=== PATIENT | male | born 1970 | race Two or more races ===

== ENCOUNTER 2024-04-08 07:21 | Emergency (ER) | payer OTHER ==
[~2024-04-08] VITALS: Ht 185.4 cm; Wt 119.3 kg
[2024-04-08 07:40] VITALS: BP 126/78; O2SAT 98
[2024-04-08] MEDS ORDERED: BIKTARVY 30-121 EACH PO (07:41)
[2024-04-08] MEDS ORDERED: TRAMADOL HCL 50 MG TABLET PO ONE (08:30)
[2024-04-08] MEDS ORDERED: TAMSULOSIN HCL 0.4 MG CAP PO ONE (08:30)
[2024-04-08 09:46] LABS: PH,URINE 5.5 (5.0-8.0); URINE APPEARANCE Clear; URINE BILIRRUBIN Negative (NEGATIVE); URINE BLOOD Negative; URINE COLOR Yellow; URINE GLUCOSE Negative (NEGATIVE); URINE KETONE Negative (NEGATIVE); URINE LEUKOCYTE Negative; URINE NITRATE Negative; URINE PROTEIN Trace (NEGATIVE); URINE UROBILINOGEN 0.2 E.U./dl
[2024-04-08 09:51] LABS: URINE BACTERIA 6.2 uL (0.0-1933); URINE EPITHELIAL CELLS 3.7 uL (0.0-38.8); URINE RBC 5.3 uL (0.0-20.8); URINE WBC 3.2 uL (0.0-23.2)
[2024-04-08] MEDS ORDERED: NORFLEX100MG PO (10:08)
== END 2024-04-08 11:34 | disposition home or self-care (01) ==
LOC: ER 07:23
PROVIDERS: General Practice
DX: M54.9 Dorsalgia, unspecified (principal); Z21 Asymptomatic human immunodeficiency virus [HIV] infection status

== ENCOUNTER 2024-05-07 10:57 | Inpatient (IN) | payer OTHER ==
[~2024-05-07] VITALS: Ht 185.4 cm; Wt 131.1 kg
[~2024-05-07 10:57] MED LIST: BIKTARVY 30-121 EACH PO; NORFLEX100MG PO
--- NOTE | 2024-05-07 11:28 | NUR ---
SE RECIBE PTE ALERTA Y ORIENTADO X3 LE MISMO REFIERE QUE PRESENTO FALTA DE AIRE EN LA MANANA DE HOY. SE OBSERVAN AMBAS PIENRAS CON EDEMAS Y ENROJECIDAS.
[2024-05-07 12:19] LABS: MEAN CELL VOLUME 81.7 fL (80.0-100.00); MEAN CORPUSCULAR HGB CONC 34.2 g/dl (32.0-36.0); RED BLOOD COUNT 2.59 M/uL (4.00-6.00); RED CELL DISTRIBUTION WIDTH 18.7 % (11.5-14.5)
--- NOTE | 2024-05-07 12:20 | NUR ---
SE LE ORIENTA A PACIENTE SOBRE LA ORDEN MEDICA, REFIERE ENTENDER LAS MISMAS. SE CANALIZA Y SE LE COLOCA H/L, SE LE GURVINDER LAS MUETRAS Y SE LE REALIZA PLACA CHARMAINE LA ORDEN MEDICA.
[2024-05-07 12:21] LABS: HEMATOCRIT 21.2 % (39.0-48.0); HEMOGLOBIN 7.2 g/dL (13-16.00); MEAN CORPUSCULAR HEMOGLOBIN 27.7 pg (27.00-32.0); PLATELET COUNT 98 K/uL (150-450)
[2024-05-07 13:18] LABS: CALCIUM 8.5 mg/dL (8.5-10.1); GFR 3.41; POTASSIUM 5.22 mEq/L (3.5-5.1)
[2024-05-07 13:21] LABS: CREATININE SERUM 15.2 mg/dL (0.70-1.30)
[2024-05-07 14:08] LABS: ABG PH 7.385 (7.35-7.45); ABG PO2 87.9 mmHg (80-100); ABG pCO2 22.4 mmHg (35-45); BASE EXCESS -9.6 mmol/l; BICARBONATE 13.1 mmol/l (23-25); SaO2 96.2 %; Tco2 13.8 mmol/l
[2024-05-07 14:09] LABS: allen test SATISFACTORY; o2 21 %; puncture site RADIAL RIGHT
--- NOTE | 2024-05-07 14:11 | NUR ---
SE COLOCA MICHAEL BAJO MEDIDAS ASEPTICAS Y ESTERILES. PTE NO PRESENTA EGRESO DE ORINA AL MOMENTO. SE NOTIFICA A .
--- NOTE | 2024-05-07 15:20 | NUR ---
SE RECIBE PTE ALERTA Y ORIENTADO X3. EN DESCANZO EN CAMA BAJA CON BARANDAS ELEVADAS Y BUEN PATRON RESPIRATORIO. PTE CONECTADO A MONITOR CARDIACO Y OXIMETRIA DE PULSO CONTINUA. EXTREMIDADES SUPERIORES LIBRES DE EDEMA Y ERITEMA ABDOMEN BLANDO AL TACTO CON PERISTALSIS PRESENTE. SONDA URINARIA MICHAEL SIN PRESENCIA DE OUTPUT. EXTREMIDADES INFERIORES CON PRESENCIA DE EDEMA. AL MOMENTO EN QUE SE RECIBE PTE EL MISMO SE GURVINDER SV Y SE DOCUMENTAN
[2024-05-07] MEDS ORDERED: SODIUM POLYSTYRENE SULFONATE 30G/8 TSP PO STA (15:41)
[2024-05-07] MEDS ORDERED: IRON FUM,PS/FOLIC/BCOMP,C NO.9 1 CAP CAPSULE PO SCH (17:23)
[2024-05-07 17:57] LABS: INR 1.15; PARTIAL THROMBOPLASTIN TIME 29.9 SECONDS (22.0-34.0); PROTHROMBIN TIME 12.4 SECONDS (9.0-11.5)
[2024-05-07 18:09] LABS: ALBUMIN 1.9 gm/dL (3.4-5.0); BILIRUBIN TOTAL 0.52 mg/dL (0.3-1.2); GFR 3.31; GLOBULINA 7.5 G/DL (2.4-3.5); POTASSIUM 5.6 mEq/L (3.5-5.1); TOTAL PROTEIN 9.4 gm/dL (6.4-8.2)
[2024-05-07 18:50] LABS: CREATININE SERUM 15.6 mg/dL (0.70-1.30)
[2024-05-07 18:52] LABS: URIC ACID 14.7 mg/dL (3.5-8.5)
[2024-05-07] MEDS ORDERED: AMINO ACIDS 1 EACH TABLET PO SCH (19:05)
[2024-05-07] MEDS ORDERED: SODIUM POLYSTYRENE SULFONATE 15 G/4 TSP TSP PO SCH (19:06)
[2024-05-07] MEDS ORDERED: 0.9 % SODIUM CHLORIDE 1,000 ML IV SCH (19:15)
[2024-05-08] VITALS: BP 151/91; O2SAT 96
[2024-05-08 05:00] VITALS: BP 157/74; O2SAT 98
[2024-05-08 07:00] VITALS: BP 150/69; O2SAT 98
[2024-05-08] MEDS ORDERED: PANTOPRAZOLE SODIUM 40 MG/VIAL VIAL IV SCH (09:00)
[2024-05-08 15:00] VITALS: BP 154/70; O2SAT 95
[2024-05-08 18:18] LABS: HEMATOCRIT 30.3 % (39.0-48.0); HEMOGLOBIN 10.6 g/dL (13-16.00); MEAN CELL VOLUME 82.3 fL (80.0-100.00); MEAN CORPUSCULAR HEMOGLOBIN 28.9 pg (27.00-32.0); MEAN CORPUSCULAR HGB CONC 35.1 g/dl (32.0-36.0); RED BLOOD COUNT 3.68 M/uL (4.00-6.00); RED CELL DISTRIBUTION WIDTH 18.1 % (11.5-14.5)
[2024-05-08 18:23] LABS: PLATELET COUNT 101 K/uL (150-450)
[2024-05-08 18:36] LABS: ALBUMIN 1.9 gm/dL (3.4-5.0); BILIRUBIN TOTAL 0.6 mg/dL (0.3-1.2); CALCIUM 8.1 mg/dL (8.5-10.1); GLOBULINA 8.4 G/DL (2.4-3.5); MAGNESIUM 2.2 mg/dL (1.8-2.4); PHOSPHOROUS 5.5 mg/dL (2.5-4.9); POTASSIUM 4.13 mEq/L (3.5-5.1)
[2024-05-08 18:42] LABS: GFR 4.23
[2024-05-08 18:43] LABS: TOTAL PROTEIN 10.3 gm/dL (6.4-8.2)
[2024-05-08 18:44] LABS: CREATININE SERUM 12.6 mg/dL (0.70-1.30)
[2024-05-08 19:21] VITALS: BP 167/78; O2SAT 97
[2024-05-08 23:35] VITALS: BP 140/87; O2SAT 97
[2024-05-09 00:51] LABS: URINE APPEARANCE Turbid; URINE BILIRRUBIN Moderate (NEGATIVE); URINE BLOOD Moderate; URINE COLOR Red; URINE GLUCOSE Negative (NEGATIVE); URINE KETONE Negative (NEGATIVE); URINE LEUKOCYTE Large; URINE NITRATE Positive; URINE UROBILINOGEN 0.2 E.U./dl
[2024-05-09 00:52] LABS: URINE EPITHELIAL CELLS 56.7 uL (0.0-38.8); URINE RBC 251.9 uL (0.0-20.8); URINE WBC 295.8 uL (0.0-23.2)
[2024-05-09 01:36] LABS: URINE BACTERIA > 9821.5 uL (0.0-1933); URINE CAST > 21.83 uL (0.0-1.40); URINE PROTEIN 100 (NEGATIVE)
[2024-05-09 06:34] LABS: ALBUMIN 1.9 gm/dL (3.4-5.0); BILIRUBIN TOTAL 0.52 mg/dL (0.3-1.2); CALCIUM 8.3 mg/dL (8.5-10.1); GFR 3.72; GLOBULINA 8.1 G/DL (2.4-3.5); MAGNESIUM 2.2 mg/dL (1.8-2.4); PHOSPHOROUS 6.7 mg/dL (2.5-4.9); POTASSIUM 4.94 mEq/L (3.5-5.1)
[2024-05-09 06:38] LABS: CREATININE SERUM 14.1 mg/dL (0.70-1.30)
[2024-05-09 07:02] LABS: HEMATOCRIT 29.5 % (39.0-48.0); HEMOGLOBIN 10.1 g/dL (13-16.00); MEAN CELL VOLUME 82.8 fL (80.0-100.00); MEAN CORPUSCULAR HEMOGLOBIN 28.4 pg (27.00-32.0); MEAN CORPUSCULAR HGB CONC 34.3 g/dl (32.0-36.0); RED BLOOD COUNT 3.56 M/uL (4.00-6.00); RED CELL DISTRIBUTION WIDTH 17.6 % (11.5-14.5)
[2024-05-09] MEDS ORDERED: CITRIC ACID/SODIUM CITRATE 30 ML BLIST.PACK PO SCH (09:00)
[2024-05-09] MEDS ORDERED: BENZONATATE 100 MG CAPSULE PO SCH (09:00)
[2024-05-09 09:05] LABS: PLATELET COUNT 93 K/uL (150-450)
[2024-05-09 10:39] VITALS: BP 148/73; O2SAT 98
[2024-05-09 19:00] VITALS: BP 150/90
[2024-05-09 21:51] VITALS: O2SAT 94
[2024-05-10] VITALS (8 sets, daily range): BP systolic 122–170; BP diastolic 83–85; O2SAT 90–118
[2024-05-10 07:36] LABS: CALCIUM 7.8 mg/dL (8.5-10.1); GFR 3.21; MAGNESIUM 2.1 mg/dL (1.8-2.4); POTASSIUM 4.46 mEq/L (3.5-5.1)
[2024-05-10] MEDS ORDERED: CLONAZEPAM 0.5 MG TABLET PO SCH (11:32)
[2024-05-11] VITALS (9 sets, daily range): BP systolic 142–171; BP diastolic 76–96; O2SAT 88–98
[2024-05-11 06:17] LABS: HEMATOCRIT 27.8 % (39.0-48.0); HEMOGLOBIN 9.4 g/dL (13-16.00); MEAN CELL VOLUME 83.6 fL (80.0-100.00); MEAN CORPUSCULAR HEMOGLOBIN 28.2 pg (27.00-32.0); MEAN CORPUSCULAR HGB CONC 33.7 g/dl (32.0-36.0); RED BLOOD COUNT 3.33 M/uL (4.00-6.00); RED CELL DISTRIBUTION WIDTH 18.1 % (11.5-14.5)
[2024-05-11 06:40] LABS: CALCIUM 7.6 mg/dL (8.5-10.1); GFR 2.8; MAGNESIUM 2.3 mg/dL (1.8-2.4); PHOSPHOROUS 7.7 mg/dL (2.5-4.9); POTASSIUM 4.85 mEq/L (3.5-5.1)
[2024-05-11 07:37] LABS: PLATELET COUNT 81 K/uL (150-450)
[2024-05-11] MEDS ORDERED: Calcium Acetate 667 MG CAP PO SCH (09:56)
[2024-05-12] VITALS (7 sets, daily range): BP systolic 147–162; BP diastolic 83–94; O2SAT 94–99
[2024-05-12] MEDS ORDERED: TUBERCULIN,PURIF.PROT.DERIV. 10 SKIN.TEST SKIN.TEST ID ONE (10:30)
[2024-05-12] MEDS ORDERED: HEPARIN SODIUM,PORCINE 5,000 UNITS/ML VIAL IV ONE (19:00)
[2024-05-12] MEDS ORDERED: METOPROLOL SUCCINATE 25 MG TAB.SR.24H PO SCH (21:19)
[2024-05-13 02:55] VITALS: O2SAT 96
[2024-05-13 03:02] VITALS: BP 154/94; O2SAT 98
[2024-05-13 06:41] VITALS: O2SAT 95
[2024-05-13 08:40] VITALS: BP 158/93; O2SAT 97
[2024-05-13] MEDS ORDERED: ALBUMIN HUMAN 100 ML VIAL IV SCH (09:00)
[2024-05-13 17:00] VITALS: O2SAT 95
[2024-05-13 21:17] VITALS: O2SAT 97
[2024-05-13 23:19] LABS: MEAN CELL VOLUME 81.5 fL (80.0-100.00); MEAN CORPUSCULAR HGB CONC 33.8 g/dl (32.0-36.0); RED BLOOD COUNT 2.78 M/uL (4.00-6.00); RED CELL DISTRIBUTION WIDTH 17.9 % (11.5-14.5)
[2024-05-13 23:22] LABS: MEAN CORPUSCULAR HEMOGLOBIN 27.6 pg (27.00-32.0)
[2024-05-13 23:23] LABS: HEMATOCRIT 22.6 % (39.0-48.0); PLATELET COUNT 103 K/uL (150-450)
[2024-05-13 23:41] LABS: HEMOGLOBIN 7.7 g/dL (13-16.00)
[2024-05-14 00:04] LABS: ALBUMIN 1.9 gm/dL (3.4-5.0); BILIRUBIN TOTAL 0.47 mg/dL (0.3-1.2); CALCIUM 8.3 mg/dL (8.5-10.1); GFR 3.36; GLOBULINA 7.2 G/DL (2.4-3.5); MAGNESIUM 2.2 mg/dL (1.8-2.4); PHOSPHOROUS 5.6 mg/dL (2.5-4.9); POTASSIUM 4.55 mEq/L (3.5-5.1); TOTAL PROTEIN 9.1 gm/dL (6.4-8.2)
[2024-05-14 00:07] LABS: CREATININE SERUM 15.4 mg/dL (0.70-1.30)
[2024-05-14 00:26] VITALS: O2SAT 97
[2024-05-14 01:08] VITALS: BP 149/85; O2SAT 100
[2024-05-14 03:00] VITALS: O2SAT 90
[2024-05-14 08:52] VITALS: BP 110/62; O2SAT 97
[2024-05-14 10:36] LABS: ALBUMIN 1.8 gm/dL (3.4-5.0); CALCIUM 8.8 mg/dL (8.5-10.1); GFR 2.94; PHOSPHOROUS 6.8 mg/dL (2.5-4.9); POTASSIUM 5.4 mEq/L (3.5-5.1)
[2024-05-14 10:51] LABS: CREATININE SERUM 17.3 mg/dL (0.70-1.30)
[2024-05-14] MEDS ORDERED: SODIUM POLYSTYRENE SULFONATE 30G/8 TSP PO NR (12:45)
[2024-05-14] MEDS ORDERED: AMINO ACIDS 1 EACH TABLET PO SCH (13:00)
[2024-05-14] MEDS ORDERED: HEPARIN SODIUM,PORCINE 5,000 UNITS/ML VIAL IV NR (16:00)
[2024-05-14 16:20] VITALS: BP 122/75; O2SAT 98
[2024-05-14 21:55] VITALS: O2SAT 93
[2024-05-15] VITALS (8 sets, daily range): BP systolic 125–144; BP diastolic 75–84; O2SAT 92–97
[2024-05-15 00:20] LABS: HEMATOCRIT 26.2 % (39.0-48.0); MEAN CELL VOLUME 82.3 fL (80.0-100.00); MEAN CORPUSCULAR HGB CONC 34.9 g/dl (32.0-36.0); RED BLOOD COUNT 3.18 M/uL (4.00-6.00); RED CELL DISTRIBUTION WIDTH 17.2 % (11.5-14.5)
[2024-05-15 00:51] LABS: HEMOGLOBIN 9.1 g/dL (13-16.00); MEAN CORPUSCULAR HEMOGLOBIN 28.6 pg (27.00-32.0); PLATELET COUNT 109 K/uL (150-450)
[2024-05-15 07:06] LABS: HEMATOCRIT 26.3 % (39.0-48.0); HEMOGLOBIN 9.1 g/dL (13-16.00); MEAN CELL VOLUME 83.1 fL (80.0-100.00); MEAN CORPUSCULAR HEMOGLOBIN 28.8 pg (27.00-32.0); MEAN CORPUSCULAR HGB CONC 34.7 g/dl (32.0-36.0); RED BLOOD COUNT 3.17 M/uL (4.00-6.00); RED CELL DISTRIBUTION WIDTH 17.1 % (11.5-14.5)
[2024-05-15 07:55] LABS: BILIRUBIN TOTAL 0.51 mg/dL (0.3-1.2); CALCIUM 8.5 mg/dL (8.5-10.1); GFR 4.05; GLOBULINA 7.2 G/DL (2.4-3.5); POTASSIUM 4.5 mEq/L (3.5-5.1); TOTAL PROTEIN 9.2 gm/dL (6.4-8.2)
[2024-05-15 07:58] LABS: PLATELET COUNT 114 K/uL (150-450)
[2024-05-15 08:15] LABS: CREATININE SERUM 13.1 mg/dL (0.70-1.30)
[2024-05-15 10:06] LABS: IMMUNOGLOBULIN A 73 mg/dL (90-386); IMMUNOGLOBULIN G 5845 mg/dL (603-1613)
[2024-05-15 10:06] LABS: a:g ratio 0.3 (0.7-1.7); alpha 1 g 0.4 g/dL (0.0-0.4); alpha 2 0.7 g/dL (0.4-1.0); gamma g 4.9 g/dL (0.4-1.8); prot total 9.2 g/dL (6.0-8.5)
[2024-05-15 12:38] LABS: URIC ACID 8.6 mg/dL (3.5-8.5)
[2024-05-15] MEDS ORDERED: MEROPENEM 500 MG/VIAL VIAL IV SCH (12:45)
[2024-05-15] MEDS ORDERED: LACTOBACILLUS ACIDOPHILUS 1 CAP CAP PO SCH (17:00)
[2024-05-16 06:04] VITALS: O2SAT 98
[2024-05-16] MEDS ORDERED: ALBUMIN HUMAN 100 ML VIAL IV SCH (09:00)
[2024-05-16 09:09] VITALS: O2SAT 90
[2024-05-16 11:36] VITALS: BP 138/84; O2SAT 97
[2024-05-16 12:24] VITALS: O2SAT 90
[2024-05-16 16:46] VITALS: BP 146/86; O2SAT 97
[2024-05-16 21:00] VITALS: O2SAT 96
[2024-05-17] VITALS (8 sets, daily range): BP systolic 137–156; BP diastolic 71–90; O2SAT 89–100
[2024-05-17 07:48] LABS: BILIRUBIN TOTAL 0.63 mg/dL (0.3-1.2); CALCIUM 8.5 mg/dL (8.5-10.1); GFR 3.94; GLOBULINA 7.8 G/DL (2.4-3.5); MAGNESIUM 2.3 mg/dL (1.8-2.4); PHOSPHOROUS 4.2 mg/dL (2.5-4.9); POTASSIUM 4.36 mEq/L (3.5-5.1); TOTAL PROTEIN 9.8 gm/dL (6.4-8.2)
[2024-05-17 08:00] LABS: CREATININE SERUM 13.4 mg/dL (0.70-1.30)
[2024-05-17 08:18] LABS: HEMATOCRIT 27.4 % (39.0-48.0); HEMOGLOBIN 9.3 g/dL (13-16.00); MEAN CELL VOLUME 83.9 fL (80.0-100.00); MEAN CORPUSCULAR HEMOGLOBIN 28.4 pg (27.00-32.0); MEAN CORPUSCULAR HGB CONC 33.9 g/dl (32.0-36.0); PLATELET COUNT 131 K/uL (150-450); RED BLOOD COUNT 3.26 M/uL (4.00-6.00); RED CELL DISTRIBUTION WIDTH 17.2 % (11.5-14.5)
[2024-05-17] MEDS ORDERED: PANTOPRAZOLE SODIUM 40 MG TABLET.DR PO NR (12:00)
[2024-05-17] MEDS ORDERED: FLUCONAZOLE IN NACL,ISO-OSM 2 MG/ML ML IV SCH (17:00)
[2024-05-17] MEDS ORDERED: GUAIFENESIN 100 MG/5 ML PO PRN (20:45)
[2024-05-17] MEDS ORDERED: CODEINE PHOSPHATE/GUAIFENESIN 5 ML ML PO PRN (20:45)
[2024-05-17] MEDS ORDERED: ONDANSETRON HCL 2 MG/ML VIAL IV PRN (20:45)
[2024-05-18] VITALS (10 sets, daily range): BP systolic 120–136; BP diastolic 7–80; O2SAT 90–99
[2024-05-18] MEDS ORDERED: FLUCONAZOLE IN NACL,ISO-OSM 50 ML IV SCH (09:00)
[2024-05-18] MEDS ORDERED: EPOETIN ALFA-EPBX 10,000 UNIT/ML VIAL (Retacrit) SUBCUTANEO SCH (09:00)
[2024-05-18] MEDS ORDERED: ALLOPURINOL 100 MG TABLET PO SCH (09:00)
[2024-05-18] MEDS ORDERED: PANTOPRAZOLE SODIUM 40 MG TABLET.DR PO SCH (09:00)
[2024-05-18] MEDS ORDERED: ACETAMINOPHEN 500 MG GEL..CAP PO PRN (23:30)
[2024-05-19] VITALS (8 sets, daily range): BP systolic 80–130; BP diastolic 70–79; O2SAT 89–98
[2024-05-19 06:19] LABS: MEAN CELL VOLUME 83.5 fL (80.0-100.00); MEAN CORPUSCULAR HGB CONC 33.9 g/dl (32.0-36.0); RED BLOOD COUNT 3.11 M/uL (4.00-6.00); RED CELL DISTRIBUTION WIDTH 17.5 % (11.5-14.5)
[2024-05-19 06:55] LABS: ALBUMIN 1.8 gm/dL (3.4-5.0); BILIRUBIN TOTAL 0.59 mg/dL (0.3-1.2); CALCIUM 8.3 mg/dL (8.5-10.1); GLOBULINA 7.5 G/DL (2.4-3.5); MAGNESIUM 2.4 mg/dL (1.8-2.4); PHOSPHOROUS 6.3 mg/dL (2.5-4.9); TOTAL PROTEIN 9.3 gm/dL (6.4-8.2)
[2024-05-19 07:07] LABS: MEAN CORPUSCULAR HEMOGLOBIN 28.2 pg (27.00-32.0)
[2024-05-19 07:08] LABS: HEMOGLOBIN 8.8 g/dL (13-16.00); PLATELET COUNT 115 K/uL (150-450)
[2024-05-19 07:14] LABS: GFR 2.63
[2024-05-19 07:16] LABS: POTASSIUM 6.09 mEq/L (3.5-5.1)
[2024-05-19] MEDS ORDERED: SODIUM POLYSTYRENE SULFONATE 30G/8 TSP PO STA (08:00)
[2024-05-19] MEDS ORDERED: CALCIUM GLUCONATE 100 MG/ML VIAL IV STA (08:00)
[2024-05-19] MEDS ORDERED: DEXTROSE 50 % IN WATER 0.5 G/ML DISP.SYRIN IV ONE (08:15)
[2024-05-19] MEDS ORDERED: INSULIN REGULAR, HUMAN 1,000 UNIT/10 ML UNITS IV ONE (08:15)
[2024-05-19] MEDS ORDERED: levoFLOXacin IN DEXTROSE 5 % 5 MG/ML PIGGYBAG IV NR (12:45)
[2024-05-19] MEDS ORDERED: SODIUM POLYSTYRENE SULFONATE 30G/8 TSP PO SCH (13:00)
[2024-05-19] MEDS ORDERED: HEPARIN SODIUM,PORCINE 5,000 UNITS/ML VIAL IV ONE (14:00)
[2024-05-19 15:42] LABS: CALCIUM 8.8 mg/dL (8.5-10.1); GFR 5.34
[2024-05-19 15:44] LABS: CREATININE SERUM 10.3 mg/dL (0.70-1.30)
[2024-05-19] MEDS ORDERED: SODIUM POLYSTYRENE SULFONATE 15 G/4 TSP TSP PO SCH (17:00)
[2024-05-19] MEDS ORDERED: BUPIVACAINE HCL/PF 0.25% 30ML VIAL InF ONE (21:45)
[2024-05-20] VITALS (8 sets, daily range): BP systolic 101–107; BP diastolic 60–69; O2SAT 90–98
[2024-05-20 12:06] LABS: HEMATOCRIT 28.5 % (39.0-48.0); HEMOGLOBIN 9.6 g/dL (13-16.00); MEAN CELL VOLUME 83.6 fL (80.0-100.00); MEAN CORPUSCULAR HEMOGLOBIN 28.1 pg (27.00-32.0); MEAN CORPUSCULAR HGB CONC 33.6 g/dl (32.0-36.0); PLATELET COUNT 151 K/uL (150-450); RED BLOOD COUNT 3.41 M/uL (4.00-6.00); RED CELL DISTRIBUTION WIDTH 16.6 % (11.5-14.5)
[2024-05-20 12:36] LABS: CALCIUM 8.8 mg/dL (8.5-10.1); GFR 9.54; POTASSIUM 4.38 mEq/L (3.5-5.1)
[2024-05-20 12:43] LABS: CREATININE SERUM 6.23 mg/dL (0.70-1.30)
[2024-05-20] MEDS ORDERED: HEPARIN SODIUM,PORCINE 5,000 UNITS/ML VIAL IV NR (17:30)
[2024-05-20 20:31] LABS: HEMATOCRIT 30.9 % (39.0-48.0); HEMOGLOBIN 10.4 g/dL (13-16.00); MEAN CELL VOLUME 83.4 fL (80.0-100.00); MEAN CORPUSCULAR HEMOGLOBIN 28.1 pg (27.00-32.0); MEAN CORPUSCULAR HGB CONC 33.7 g/dl (32.0-36.0); PLATELET COUNT 146 K/uL (150-450); RED BLOOD COUNT 3.71 M/uL (4.00-6.00); RED CELL DISTRIBUTION WIDTH 16.6 % (11.5-14.5)
[2024-05-21] VITALS (7 sets, daily range): BP systolic 100–140; BP diastolic 58–80; O2SAT 90–97
[2024-05-21 06:38] LABS: HEMATOCRIT 28.5 % (39.0-48.0); MEAN CELL VOLUME 82.1 fL (80.0-100.00); MEAN CORPUSCULAR HEMOGLOBIN 28.7 pg (27.00-32.0); PLATELET COUNT 132 K/uL (150-450); RED BLOOD COUNT 3.47 M/uL (4.00-6.00); RED CELL DISTRIBUTION WIDTH 16.7 % (11.5-14.5)
[2024-05-21 06:55] LABS: ALBUMIN 1.9 gm/dL (3.4-5.0); BILIRUBIN TOTAL 0.59 mg/dL (0.3-1.2); CALCIUM 8.3 mg/dL (8.5-10.1); CREATININE SERUM 3.42 mg/dL (0.70-1.30); GFR 19.06; MAGNESIUM 2.3 mg/dL (1.8-2.4); PHOSPHOROUS 3.4 mg/dL (2.5-4.9); POTASSIUM 3.88 mEq/L (3.5-5.1); TOTAL PROTEIN 9.9 gm/dL (6.4-8.2)
[2024-05-21] MEDS ORDERED: ACETAMINOPHEN 325 MG TABLET PO PRN (08:30)
[2024-05-21] MEDS ORDERED: levoFLOXacin IN DEXTROSE 5 % 500MG/100ML PIGGYBAG IV SCH (09:00)
[2024-05-21 14:47] LABS: COL EPI 170 SECONDS (82-175)
[2024-05-21 14:48] LABS: PLT IN CITRATE 110 K/uL (150-450)
[2024-05-21 19:10] LABS: PLEURAL FLUID APPEARANCE TURBID; PLEURAL FLUID COLOR RED-BLOODY
[2024-05-21 20:06] LABS: TP PLEURAL FLUID 7.9 g/dl
[2024-05-21 20:50] LABS: MONONUCLEAR 81 %; POLYMORPHONUCLEAR 19 %
[2024-05-22] VITALS (9 sets, daily range): BP systolic 109–118; BP diastolic 71–73; O2SAT 89–101
[2024-05-22 06:24] LABS: HEMATOCRIT 27.5 % (39.0-48.0); HEMOGLOBIN 9.6 g/dL (13-16.00); MEAN CELL VOLUME 82.4 fL (80.0-100.00); MEAN CORPUSCULAR HEMOGLOBIN 28.6 pg (27.00-32.0); MEAN CORPUSCULAR HGB CONC 34.7 g/dl (32.0-36.0); RED BLOOD COUNT 3.34 M/uL (4.00-6.00); RED CELL DISTRIBUTION WIDTH 16.5 % (11.5-14.5)
[2024-05-22 06:47] LABS: ALBUMIN 1.9 gm/dL (3.4-5.0); BILIRUBIN TOTAL 0.67 mg/dL (0.3-1.2); CALCIUM 8.2 mg/dL (8.5-10.1); CREATININE SERUM 2.92 mg/dL (0.70-1.30); GFR 22.87; GLOBULINA 8.2 G/DL (2.4-3.5); MAGNESIUM 2.1 mg/dL (1.8-2.4); PHOSPHOROUS 2.5 mg/dL (2.5-4.9); POTASSIUM 3.64 mEq/L (3.5-5.1); TOTAL PROTEIN 10.1 gm/dL (6.4-8.2)
[2024-05-22 07:35] LABS: PLATELET COUNT 121 K/uL (150-450)
[2024-05-22 08:49] LABS: PLATELET ESTIMATE NORMAL (NORMAL)
[2024-05-22] MEDS ORDERED: CLONAZEPAM 0.5 MG TABLET PO SCH (09:00)
[2024-05-22] MEDS ORDERED: HEPARIN SODIUM,PORCINE 5,000 UNITS/ML VIAL IV NR (16:30)
[2024-05-22] MEDS ORDERED: MIDAZOLAM HCL 2 MG/2 ML VIAL IV PUSH ONE (18:15)
[2024-05-22] MEDS ORDERED: fentaNYL CITRATE 50 MCG/ML AMPUL IV PUSH ONE (18:15)
[2024-05-22] MEDS ORDERED: MORPHINE SULFATE 4 MG/ML VIAL IV PRN (20:00)
[2024-05-23] VITALS (8 sets, daily range): BP systolic 90–107; BP diastolic 52–61; O2SAT 90–98
[2024-05-23 07:47] LABS: ALBUMIN 1.9 gm/dL (3.4-5.0); BILIRUBIN TOTAL 0.97 mg/dL (0.3-1.2); CALCIUM 7.9 mg/dL (8.5-10.1); GLOBULINA 8.5 G/DL (2.4-3.5); MAGNESIUM 2.1 mg/dL (1.8-2.4); PHOSPHOROUS 2.7 mg/dL (2.5-4.9); POTASSIUM 4.67 mEq/L (3.5-5.1)
[2024-05-23 08:08] LABS: CREATININE SERUM 5.07 mg/dL (0.70-1.30); GFR 12.1; HEMATOCRIT 27.4 % (39.0-48.0); HEMOGLOBIN 9.1 g/dL (13-16.00); MEAN CELL VOLUME 83.7 fL (80.0-100.00); MEAN CORPUSCULAR HEMOGLOBIN 27.7 pg (27.00-32.0); MEAN CORPUSCULAR HGB CONC 33.2 g/dl (32.0-36.0); PLATELET COUNT 121 K/uL (150-450); RED BLOOD COUNT 3.28 M/uL (4.00-6.00); RED CELL DISTRIBUTION WIDTH 16.9 % (11.5-14.5); TOTAL PROTEIN 10.4 gm/dL (6.4-8.2)
[2024-05-23] MEDS ORDERED: MORPHINE SULFATE 4 MG/ML CARTRIDGE IV PRN (09:00)
[2024-05-23] MEDS ORDERED: MAGNESIUM SULFATE/D5W 100 ML IV NR (15:00)
[2024-05-24] VITALS (8 sets, daily range): BP systolic 78–97; BP diastolic 43–60; O2SAT 93–100
[2024-05-24] MEDS ORDERED: SIMETHICONE 125 MG CAPSULE PO SCH (09:00)
[2024-05-24] MEDS ORDERED: PROPRANOLOL HCL 10 MG TABLET PO SCH (13:00)
[2024-05-24 15:54] LABS: MEAN CELL VOLUME 83.6 fL (80.0-100.00); MEAN CORPUSCULAR HGB CONC 32.5 g/dl (32.0-36.0)
[2024-05-24 16:13] LABS: HEMATOCRIT 21.7 % (39.0-48.0); MEAN CORPUSCULAR HEMOGLOBIN 26.9 pg (27.00-32.0); PLATELET COUNT 131 K/uL (150-450); RED CELL DISTRIBUTION WIDTH 17.7 % (11.5-14.5)
[2024-05-25] VITALS (9 sets, daily range): BP systolic 96–119; BP diastolic 57–80; O2SAT 94–100
[2024-05-25 06:43] LABS: MEAN CELL VOLUME 82.8 fL (80.0-100.00); MEAN CORPUSCULAR HGB CONC 33.1 g/dl (32.0-36.0); PLATELET COUNT 140 K/uL (150-450); RED BLOOD COUNT 2.68 M/uL (4.00-6.00); RED CELL DISTRIBUTION WIDTH 17.1 % (11.5-14.5)
[2024-05-25 06:57] LABS: ALBUMIN 1.7 gm/dL (3.4-5.0); BILIRUBIN TOTAL 0.67 mg/dL (0.3-1.2); CALCIUM 7.9 mg/dL (8.5-10.1); GFR 5.06; GLOBULINA 7.9 G/DL (2.4-3.5); MAGNESIUM 2.7 mg/dL (1.8-2.4); POTASSIUM 5.5 mEq/L (3.5-5.1); TOTAL PROTEIN 9.6 gm/dL (6.4-8.2)
[2024-05-25 08:05] LABS: HEMATOCRIT 22.1 % (39.0-48.0); HEMOGLOBIN 7.3 g/dL (13-16.00); MEAN CORPUSCULAR HEMOGLOBIN 27.2 pg (27.00-32.0)
[2024-05-25 08:24] LABS: CREATININE SERUM 10.8 mg/dL (0.70-1.30)
[2024-05-25] MEDS ORDERED: SODIUM POLYSTYRENE SULFONATE 30G/8 TSP PO NR (10:15)
[2024-05-25] MEDS ORDERED: CITRIC ACID/SODIUM CITRATE 30 ML BLIST.PACK PO SCH (13:00)
[2024-05-25] MEDS ORDERED: HEPARIN SODIUM,PORCINE 5,000 UNITS/ML VIAL IV ONE (16:30)
[2024-05-25 22:18] LABS: MEAN CELL VOLUME 83.2 fL (80.0-100.00); MEAN CORPUSCULAR HGB CONC 33.7 g/dl (32.0-36.0); PLATELET COUNT 155 K/uL (150-450); RED BLOOD COUNT 2.88 M/uL (4.00-6.00)
[2024-05-25 22:19] LABS: MEAN CORPUSCULAR HEMOGLOBIN 28.1 pg (27.00-32.0); RED CELL DISTRIBUTION WIDTH 17.2 % (11.5-14.5)
[2024-05-25 22:36] LABS: HEMOGLOBIN 8.1 g/dL (13-16.00)
[2024-05-26] VITALS (10 sets, daily range): BP systolic 100–105; BP diastolic 57–65; O2SAT 90–98
[2024-05-26 05:58] LABS: ALBUMIN 1.6 gm/dL (3.4-5.0); BILIRUBIN TOTAL 0.83 mg/dL (0.3-1.2); CALCIUM 7.4 mg/dL (8.5-10.1); GFR 7.6; GLOBULINA 7.5 G/DL (2.4-3.5); MAGNESIUM 2.1 mg/dL (1.8-2.4); PHOSPHOROUS 5.9 mg/dL (2.5-4.9); POTASSIUM 3.81 mEq/L (3.5-5.1); TOTAL PROTEIN 9.1 gm/dL (6.4-8.2)
[2024-05-26 06:41] LABS: CREATININE SERUM 7.59 mg/dL (0.70-1.30)
[2024-05-26 06:51] LABS: MEAN CELL VOLUME 83.3 fL (80.0-100.00); MEAN CORPUSCULAR HGB CONC 34.7 g/dl (32.0-36.0); PLATELET COUNT 145 K/uL (150-450); RED BLOOD COUNT 2.59 M/uL (4.00-6.00); RED CELL DISTRIBUTION WIDTH 16.9 % (11.5-14.5)
[2024-05-26 07:53] LABS: HEMATOCRIT 21.6 % (39.0-48.0); MEAN CORPUSCULAR HEMOGLOBIN 28.9 pg (27.00-32.0)
[2024-05-26 07:54] LABS: HEMOGLOBIN 7.5 g/dL (13-16.00)
[2024-05-26 10:34] LABS: HEMATOCRIT 23.9 % (39.0-48.0); MEAN CORPUSCULAR HGB CONC 33.9 g/dl (32.0-36.0); PLATELET COUNT 158 K/uL (150-450); RED BLOOD COUNT 2.84 M/uL (4.00-6.00); RED CELL DISTRIBUTION WIDTH 16.9 % (11.5-14.5)
[2024-05-26 10:38] LABS: HEMOGLOBIN 8.1 g/dL (13-16.00); MEAN CORPUSCULAR HEMOGLOBIN 28.5 pg (27.00-32.0)
[2024-05-26] MEDS ORDERED: CLONAZEPAM 0.5 MG TABLET PO SCH (21:00)
[2024-05-27] VITALS (8 sets, daily range): BP systolic 91–95; BP diastolic 53–56; O2SAT 95–100
[2024-05-27] MEDS ORDERED: METOPROLOL TARTRATE 5MG/5ML AMPUL IV SCH (13:00)
[2024-05-27] MEDS ORDERED: METOPROLOL SUCCINATE 25 MG TAB.SR.24H PO SCH (17:00)
[2024-05-27] MEDS ORDERED: LOPERAMIDE HCL 2 MG CAPSULE PO STA (18:49)
[2024-05-27] MEDS ORDERED: LOPERAMIDE HCL 2 MG CAPSULE PO PRN (19:00)
[2024-05-28] VITALS (8 sets, daily range): BP systolic 109–137; BP diastolic 68–73; O2SAT 94–100
[2024-05-28 01:04] LABS: INR 1.17; PARTIAL THROMBOPLASTIN TIME 30.9 SECONDS (22.0-34.0); PROTHROMBIN TIME 12.6 SECONDS (9.0-11.5)
[2024-05-28 01:19] LABS: HEMATOCRIT 49.9 % (39.0-48.0); HEMOGLOBIN 16.4 g/dL (13-16.00); MEAN CELL VOLUME 84.5 fL (80.0-100.00); MEAN CORPUSCULAR HEMOGLOBIN 27.7 pg (27.00-32.0); MEAN CORPUSCULAR HGB CONC 32.8 g/dl (32.0-36.0); RED BLOOD COUNT 5.91 M/uL (4.00-6.00); RED CELL DISTRIBUTION WIDTH 17.4 % (11.5-14.5)
[2024-05-28 01:23] LABS: PLATELET COUNT 76 K/uL (150-450)
[2024-05-28 06:33] LABS: HEMATOCRIT 27.5 % (39.0-48.0); MEAN CELL VOLUME 82.5 fL (80.0-100.00); MEAN CORPUSCULAR HGB CONC 34.3 g/dl (32.0-36.0); RED BLOOD COUNT 3.33 M/uL (4.00-6.00); RED CELL DISTRIBUTION WIDTH 17.6 % (11.5-14.5)
[2024-05-28 07:08] LABS: ALBUMIN 1.8 gm/dL (3.4-5.0); BILIRUBIN TOTAL 1.02 mg/dL (0.3-1.2); CALCIUM 7.7 mg/dL (8.5-10.1); GFR 8.91; GLOBULINA 7.6 G/DL (2.4-3.5); MAGNESIUM 2.4 mg/dL (1.8-2.4); PHOSPHOROUS 4.5 mg/dL (2.5-4.9); POTASSIUM 3.43 mEq/L (3.5-5.1); TOTAL PROTEIN 9.4 gm/dL (6.4-8.2)
[2024-05-28 07:13] LABS: COL ADP 146 SECONDS (56-102); COL EPI 132 SECONDS (82-175)
[2024-05-28 07:20] LABS: MEAN CORPUSCULAR HEMOGLOBIN 28.2 pg (27.00-32.0)
[2024-05-28 07:21] LABS: HEMOGLOBIN 9.4 g/dL (13-16.00); PLATELET COUNT 122 K/uL (150-450)
[2024-05-28 07:55] LABS: CREATININE SERUM 6.61 mg/dL (0.70-1.30)
[2024-05-28] MEDS ORDERED: METOPROLOL SUCCINATE 25 MG TAB.SR.24H PO SCH (09:00)
[2024-05-28] MEDS ORDERED: DEXAMETHASONE SODIUM PHOSP/PF 10 MG/ML VIAL IJ SCH (09:00)
[2024-05-28] MEDS ORDERED: POTASSIUM CHLORIDE 20MEQ/100ML H2O PB IV NR (11:00)
[2024-05-29] VITALS (9 sets, daily range): BP systolic 99–114; BP diastolic 68–70; O2SAT 96–110
[2024-05-29] MEDS ORDERED: MIDODRINE HCL 5 MG TABLET PO SCH (17:00)
[2024-05-30] VITALS: O2SAT 97
[2024-05-30 01:28] VITALS: BP 139/60; BP 97/56; O2SAT 97; O2SAT 98
[2024-05-30 04:07] VITALS: O2SAT 97
[2024-05-30 06:47] VITALS: BP 100/70; O2SAT 98
== END 2024-05-30 07:25 | disposition designated cancer center or children's hospital (05) | DRG 974 ==
LOC: ER 10:59 → MEDI 16:26 → ICU-2 16:26 → MEDI 05-09 12:48
PROVIDERS: Emergency Medicine; Internal Medicine; Internal Medicine Hematology & Oncology; Internal Medicine Nephrology; Radiology Vascular & Interventional Radiology; Student in an Organized Health Care Education/Training Program; ADMIT Internal Medicine; ATTEND Internal Medicine
PROC: BT43ZZZ Ultrasonography of Bilateral Kidneys (ICD-10-PCS; 2024-05-07)
PROC: BW21YZZ Computerized Tomography (CT Scan) of Abdomen and Pelvis using Other Contrast (ICD-10-PCS; 2024-05-07)
PROC: 30233N1 Transfusion of Nonautologous Red Blood Cells into Peripheral Vein, Percutaneous Approach (ICD-10-PCS; 2024-05-08)
PROC: 5A1D70Z Performance of Urinary Filtration, Intermittent, Less than 6 Hours Per Day (ICD-10-PCS; 2024-05-08)
PROC: 02HV33Z Insertion of Infusion Device into Superior Vena Cava, Percutaneous Approach (ICD-10-PCS; 2024-05-09)
PROC: 4A12X4Z Monitoring of Cardiac Electrical Activity, External Approach (ICD-10-PCS; 2024-05-09)
PROC: 05HM33Z Insertion of Infusion Device into Right Internal Jugular Vein, Percutaneous Approach (ICD-10-PCS; principal; 2024-05-12)
PROC: B543ZZA Ultrasonography of Right Jugular Veins, Guidance (ICD-10-PCS; 2024-05-12)
PROC: 5A1D70Z Performance of Urinary Filtration, Intermittent, Less than 6 Hours Per Day (ICD-10-PCS; 2024-05-13)
PROC: BW24ZZZ Computerized Tomography (CT Scan) of Chest and Abdomen (ICD-10-PCS; 2024-05-15)
PROC: 5A1D70Z Performance of Urinary Filtration, Intermittent, Less than 6 Hours Per Day (ICD-10-PCS; 2024-05-15)
PROC: 079T3ZX Drainage of Bone Marrow, Percutaneous Approach, Diagnostic (ICD-10-PCS; 2024-05-18)
PROC: 05PY33Z Removal of Infusion Device from Upper Vein, Percutaneous Approach (ICD-10-PCS; 2024-05-19)
PROC: 05HM33Z Insertion of Infusion Device into Right Internal Jugular Vein, Percutaneous Approach (ICD-10-PCS; 2024-05-19)
PROC: 0JH63XZ Insertion of Tunneled Vascular Access Device into Chest Subcutaneous Tissue and Fascia, Percutaneous Approach (ICD-10-PCS; 2024-05-19)
PROC: B513ZZA Fluoroscopy of Right Jugular Veins, Guidance (ICD-10-PCS; 2024-05-19)
PROC: B54DZZZ Ultrasonography of Bilateral Lower Extremity Veins (ICD-10-PCS; 2024-05-19)
PROC: 5A1D70Z Performance of Urinary Filtration, Intermittent, Less than 6 Hours Per Day (ICD-10-PCS; 2024-05-19)
PROC: 0W9B3ZX Drainage of Left Pleural Cavity, Percutaneous Approach, Diagnostic (ICD-10-PCS; 2024-05-21)
PROC: 0TB13ZX Excision of Left Kidney, Percutaneous Approach, Diagnostic (ICD-10-PCS; 2024-05-22)
PROC: 5A1D70Z Performance of Urinary Filtration, Intermittent, Less than 6 Hours Per Day (ICD-10-PCS; 2024-05-22)
PROC: 30233L1 Transfusion of Nonautologous Fresh Plasma into Peripheral Vein, Percutaneous Approach (ICD-10-PCS; 2024-05-27)
PROC: 30233K1 Transfusion of Nonautologous Frozen Plasma into Peripheral Vein, Percutaneous Approach (ICD-10-PCS; 2024-05-27)
PROC: BH4BZZZ Ultrasonography of Chest Wall (ICD-10-PCS; 2024-05-28)
PROC: 0W9B3ZZ Drainage of Left Pleural Cavity, Percutaneous Approach (ICD-10-PCS; 2024-05-29)
PROC: 5A1D70Z Performance of Urinary Filtration, Intermittent, Less than 6 Hours Per Day (ICD-10-PCS; 2024-05-29)
DX: C83.30 Diffuse large B-cell lymphoma, unspecified site (principal); E88.3 Tumor lysis syndrome; B20 Human immunodeficiency virus [HIV] disease; N18.6 End stage renal disease; N17.9 Acute kidney failure, unspecified; E87.20 Acidosis, unspecified; J90 Pleural effusion, not elsewhere classified; J15.8 Pneumonia due to other specified bacteria; D64.9 Anemia, unspecified; E87.5 Hyperkalemia; D69.6 Thrombocytopenia, unspecified; Z99.2 Dependence on renal dialysis; K80.20 Calculus of gallbladder without cholecystitis without obstruction; R59.1 Generalized enlarged lymph nodes; R91.8 Other nonspecific abnormal finding of lung field; M89.58 Osteolysis, other site; D63.0 Anemia in neoplastic disease